=== PATIENT | female | born 1965 | race Caucasian/White ===

== ENCOUNTER 2024-06-16 15:08 | Outpatient (REF) | payer BC, SELFPAY | END 2024-06-16 15:09 | disposition home or self-care (01) | LOC: HO.BBR 15:08 | PROVIDERS: PCP Internal Medicine; Visit Provider Internal Medicine Hematology | DX: Z13.89 Encounter for screening for other disorder (principal) ==

== ENCOUNTER 2024-09-18 14:52 | Outpatient (REF) | payer BC, SELFPAY ==
--- OUTSIDE RECORDS SUMMARY | 2024-09-18 16:11 | XMS_ITS | Patient Health Record ---
Author Organization [facility] Address [address] [place] [address] Care Team Providers Care Hand Assembler For Puller Over Name Role Phone Sebastián Ortega Unavailable [phone] Reason For Referral No Information Medications Medication SIG (Take, Route, Frequency, Duration) Notes Start Date End Date Status Omeprazole Active buPROPion HCl Active Problems Problem Type SNOMED Code ICD Code Onset Dates Problem Status W/U Status Risk Notes Problem Disorder of joint of ankle and/or foot (924515846) Arthritis - Degenerative (719.97) Active confirmed Problem Neuralgia - Neuritis (729.2) Active confirmed Problem Hallux valgus (199875590) Hallux Valgus (735.0) Active confirmed Problem Hammer toe (824189710) Hammer toe (735.4) Active confirmed Problem Pain in limb (50557385) Pain in Limb (729.5) Active confirmed Plan Of Treatment Pending Test Test Name Order Date X ray : Foot, left 2V 07/02/2012 X ray : Foot, right 2V 07/02/2012 57767, J0702- INJECT or DRAIN, JOINT/BUR SA 12/27/2012 Insurance Providers Payer Name Payer Address Payer Phone Subscriber Number Group Number Insured Name Patient Relationship to Insured Coverage Start Date Coverage End Date [facility] [address] [facility] [place] [address] [id number] Carin Zapata Self - patient is the insured Medical (General) History Medical History History ICD Code chicken pox
== END 2024-09-18 14:53 | disposition home or self-care (01) ==
LOC: HO.BBR 14:52
PROVIDERS: PCP Internal Medicine; Visit Provider Internal Medicine Hematology
DX: Z13.89 Encounter for screening for other disorder (principal)

== ENCOUNTER 2024-12-19 11:49 | Outpatient (REF) | payer BC, SELFPAY ==
--- OUTSIDE RECORDS SUMMARY | 2024-12-19 12:20 | XMS_ITS | Patient Health Record ---
Author Organization [facility] Address [address] [place] [address] Care Team Providers Care Slp Name Role Phone Sebastián Ortega Unavailable [phone] Reason For Referral No Information Medications Medication SIG (Take, Route, Frequency, Duration) Notes Start Date End Date Status Omeprazole Active buPROPion HCl Active Problems Problem Type SNOMED Code ICD Code Onset Dates Problem Status W/U Status Risk Notes Problem Disorder of joint of ankle and/or foot (541207404) Arthritis - Degenerative (719.97) Active confirmed Problem Neuralgia - Neuritis (729.2) Active confirmed Problem Hallux valgus (325951417) Hallux Valgus (735.0) Active confirmed Problem Hammer toe (605953742) Hammer toe (735.4) Active confirmed Problem Pain in limb (55109396) Pain in Limb (729.5) Active confirmed Plan Of Treatment Pending Test Test Name Order Date X ray : Foot, left 2V 07/02/2012 X ray : Foot, right 2V 07/02/2012 01393, J0702- INJECT or DRAIN, JOINT/BUR SA 12/27/2012 Insurance Providers Payer Name Payer Address Payer Phone Subscriber Number Group Number Insured Name Patient Relationship to Insured Coverage Start Date Coverage End Date [facility] [address] [facility] [place] [address] [phone] [id number] Carin Zapata Self - patient is the insured Medical (General) History Medical History History ICD Code chicken pox
== END 2024-12-19 11:50 | disposition home or self-care (01) ==
LOC: HO.BBR 11:49
PROVIDERS: PCP Internal Medicine; Visit Provider Internal Medicine Hematology
DX: Z13.89 Encounter for screening for other disorder (principal)

== ENCOUNTER 2024-12-23 11:51 | Outpatient (REF) | payer BC, SELFPAY ==
--- OUTSIDE RECORDS SUMMARY | 2024-12-23 14:44 | XMS_ITS | Patient Health Record ---
Author Organization [facility] Address [address] [place] [address] Care Team Providers Care Game Engineer Name Role Phone Sebastián Ortega Unavailable [phone] Reason For Referral No Information Medications Medication SIG (Take, Route, Frequency, Duration) Notes Start Date End Date Status Omeprazole Active buPROPion HCl Active Problems Problem Type SNOMED Code ICD Code Onset Dates Problem Status W/U Status Risk Notes Problem Disorder of joint of ankle and/or foot (613361354) Arthritis - Degenerative (719.97) Active confirmed Problem Neuralgia - Neuritis (729.2) Active confirmed Problem Hallux valgus (328229208) Hallux Valgus (735.0) Active confirmed Problem Hammer toe (552637960) Hammer toe (735.4) Active confirmed Problem Pain in limb (84846168) Pain in Limb (729.5) Active confirmed Plan Of Treatment Pending Test Test Name Order Date X ray : Foot, left 2V 07/02/2012 X ray : Foot, right 2V 07/02/2012 73179, J0702- INJECT or DRAIN, JOINT/BUR SA 12/27/2012 Insurance Providers Payer Name Payer Address Payer Phone Subscriber Number Group Number Insured Name Patient Relationship to Insured Coverage Start Date Coverage End Date [facility] [address] [facility] [place] [address] [id number] Carin Zapata Self - patient is the insured Medical (General) History Medical History History ICD Code chicken pox
== END 2024-12-23 11:52 | disposition home or self-care (01) ==
LOC: HO.BBR 11:51
PROVIDERS: PCP Internal Medicine; Visit Provider Internal Medicine Hematology
DX: Z13.89 Encounter for screening for other disorder (principal)